=== PATIENT | female | born 1980 | race Two or more races ===

== ENCOUNTER 2017-06-10 21:18 | Observation (INO) | payer MEDICAID ==
[~2017-06-10 21:18] MED LIST: PREN-96 PO
== END 2017-06-10 22:40 | disposition home or self-care (01) | DRG 566 ==
LOC: LDRP 21:18
PROVIDERS: ADMIT Obstetrics & Gynecology; ATTEND Obstetrics & Gynecology
DX: O36.8130 Decreased fetal movements, third trimester, not applicable or unspecified (principal); O26.893 Other specified pregnancy related conditions, third trimester; M79.89 Other specified soft tissue disorders; O09.523 Supervision of elderly multigravida, third trimester; W18.30XA Fall on same level, unspecified, initial encounter; Y93.89 Activity, other specified; Y92.009 Unspecified place in unspecified non-institutional (private) residence as the place of occurrence of the external cause; Y99.8 Other external cause status; Z3A.28 28 weeks gestation of pregnancy
CPT/HCPCS: 59025; 76815; 81002; G0378

== ENCOUNTER 2017-07-14 19:46 | Observation (INO) | payer MEDICAID | END 2017-07-14 21:10 | disposition home or self-care (01) | DRG 566 | LOC: LDRP 19:46 | PROVIDERS: ADMIT Obstetrics & Gynecology; ATTEND Obstetrics & Gynecology | DX: O24.419 Gestational diabetes mellitus in pregnancy, unspecified control (principal); O26.893 Other specified pregnancy related conditions, third trimester; O09.523 Supervision of elderly multigravida, third trimester; R51 Headache; O62.9 Abnormality of forces of labor, unspecified; Z3A.33 33 weeks gestation of pregnancy | CPT/HCPCS: 59025; 81002; 82962; G0378 ==

== ENCOUNTER 2017-07-21 20:02 | Observation (INO) | payer MEDICAID ==
[2017-07-21] MEDS ORDERED: TERBUTALINE SULFATE 1 MG/ML 1ML VIAL SC ONE ×2 (21:00→21:11)
== END 2017-07-21 21:51 | disposition home or self-care (01) | DRG 566 ==
LOC: LDRP 20:02
PROVIDERS: ADMIT Obstetrics & Gynecology; ATTEND Obstetrics & Gynecology
DX: O24.419 Gestational diabetes mellitus in pregnancy, unspecified control (principal); O09.523 Supervision of elderly multigravida, third trimester; Z3A.34 34 weeks gestation of pregnancy
CPT/HCPCS: 59025; 81002; 82948; 82962; 96372; G0378; J3105

== ENCOUNTER 2017-07-28 19:57 | Observation (INO) | payer MEDICAID | END 2017-07-28 21:35 | disposition home or self-care (01) | DRG 566 | LOC: LDRP 19:57 | PROVIDERS: ADMIT Obstetrics & Gynecology; ATTEND Obstetrics & Gynecology | DX: O24.419 Gestational diabetes mellitus in pregnancy, unspecified control (principal); O09.523 Supervision of elderly multigravida, third trimester; Z3A.35 35 weeks gestation of pregnancy | CPT/HCPCS: 59025; 81002; 82962; G0378 ==

== ENCOUNTER 2017-07-29 10:10 | Observation (INO) | payer MEDICAID | END 2017-07-29 10:45 | disposition home or self-care (01) | DRG 566 | LOC: LDRP 10:10 | PROVIDERS: ADMIT Specialist; ATTEND Specialist | DX: O24.419 Gestational diabetes mellitus in pregnancy, unspecified control (principal); O12.03 Gestational edema, third trimester; O36.8130 Decreased fetal movements, third trimester, not applicable or unspecified; W19.XXXA Unspecified fall, initial encounter; Y93.89 Activity, other specified; Y92.89 Other specified places as the place of occurrence of the external cause; Y99.8 Other external cause status; Z3A.35 35 weeks gestation of pregnancy | CPT/HCPCS: 76818; G0378 ==

== ENCOUNTER 2017-07-31 21:20 | Observation (INO) | payer MEDICAID | END 2017-07-31 22:37 | disposition home or self-care (01) | DRG 566 | LOC: LDRP 21:20 → UNDODISOB 22:37 | PROVIDERS: ADMIT Specialist; ATTEND Specialist | DX: O24.419 Gestational diabetes mellitus in pregnancy, unspecified control (principal); Z3A.35 35 weeks gestation of pregnancy | CPT/HCPCS: 59025; 76818; 81002; 82948; 82962; G0378 ==

== ENCOUNTER 2017-08-04 20:15 | Observation (INO) | payer MEDICAID ==
[2017-08-04] MEDS ORDERED: FERR-7 PO (21:31)
== END 2017-08-04 22:11 | disposition home or self-care (01) | DRG 566 ==
LOC: LDRP 20:15
PROVIDERS: ADMIT Specialist; ATTEND Specialist
DX: O12.03 Gestational edema, third trimester (principal); O36.8130 Decreased fetal movements, third trimester, not applicable or unspecified; O09.523 Supervision of elderly multigravida, third trimester; W19.XXXA Unspecified fall, initial encounter; Y93.89 Activity, other specified; Y92.89 Other specified places as the place of occurrence of the external cause; Y99.8 Other external cause status; Z3A.36 36 weeks gestation of pregnancy
CPT/HCPCS: 59025; 76818; 81002; 82962; G0378

== ENCOUNTER 2017-08-07 21:01 | Observation (INO) | payer MEDICAID ==
[~2017-08-07 21:01] MED LIST changes: +FERR-7 PO
== END 2017-08-07 22:20 | disposition home or self-care (01) | DRG 563 ==
LOC: LDRP 21:01 → UNDODISOB 22:20
PROVIDERS: ADMIT Obstetrics & Gynecology; ATTEND Obstetrics & Gynecology
DX: O60.03 Preterm labor without delivery, third trimester (principal); O26.893 Other specified pregnancy related conditions, third trimester; N89.8 Other specified noninflammatory disorders of vagina; O09.523 Supervision of elderly multigravida, third trimester; Z3A.36 36 weeks gestation of pregnancy
CPT/HCPCS: 59025; 76818; 81002; 82962; G0378

== ENCOUNTER 2017-08-15 21:24 | Observation (INO) | payer MEDICAID ==
[~2017-08-15] VITALS: Ht 152.4 cm; Wt 74.4 kg
[2017-08-15] MEDS ORDERED: NIFEdipine 10 MG CAP PO ONE (23:00)
[2017-08-15] MEDS ORDERED: LACTATED RINGER'S 1,000 ML IV SCH (23:00)
[2017-08-15] MEDS ORDERED: LACTATED RINGER'S 1,000 ML IV ONE (23:00)
[2017-08-15] MEDS ORDERED: NIFEdipine 10 MG CAP ONE ×2 (23:03→23:27)
[2017-08-16 02:45] LABS: Urine Bacteria FEW /hpf (None Seen); Urine Blood Negative /uL (Negative); Urine Mucus FEW (None Seen); Urine Specific Gravity 1.005 (1.001-1.035); Urine WBC 1 /hpf (0 - 5)
[2017-08-16] MEDS ORDERED: LACTATED RINGER'S 1,000 ML IV ONE (03:30)
[2017-08-16] MEDS: NIFEdipine 10 MG CAP PO SCH ×2 (03:41→07:51)
[2017-08-16] MEDS ORDERED: ceFAZolin 1GM/50ML 50 ML IV ONE ×2 (04:51→05:00)
[2017-08-16 05:05] LABS: Basophils # (auto) 0 uL; Basophils % (auto) 0.5 % (0.0-2.0); Eosinophils # (auto) 0.1 uL; Eosinophils % (auto) 1.6 % (0.0-7.0); Hematocrit 34.4 % (36.0-46.0); Hemoglobin 11.8 g/dL (12.2-16.2); Lymphocytes # (auto) 1.6 uL; Lymphocytes % (auto) 26.7 % (10.0-50.0); Mean Corpuscular Hemoglobin 30.7 pg (28.0-32.0); Mean Corpuscular Hgb Conc. 34.3 g/dL (32.0-36.0); Mean Corpuscular Volume 89.4 fL (80.0-100.0); Monocytes # (auto) 0.3 uL; Monocytes % (auto) 5.7 % (0.0-12.0); Neutrophils % (auto) 65.5 % (37.0-80.0); Platelet Count (auto) 147 10^3/uL (140-450); Red Blood Cells 3.85 10^6/uL (4.0-5.20); Red Cell Distribution Width 16.5 % (11.8-14.3); White Blood Cell 6.1 10^3/uL (4.4-10.8)
[2017-08-16 05:49] LABS: Albumin 2.6 g/dL (3.4-5.0); BUN/Creatinine Ratio 22.9; Bilirubin, Total 0.6 mg/dL (0.2-1.0); Calcium 8.4 mg/dL (8.5-10.1); Potassium 3.3 mmol/L (3.5-5.1); Total Protein 6.7 g/dL (6.4-8.2)
[2017-08-16 07:23] LABS: INR 0.93 (0.9-1.15); Partial Thromboplastin Time 26.4 sec (23.78-33.04)
[2017-08-18 11:04] LABS: RPR Non Reactive (Non Reactive)
== END 2017-08-16 09:50 | disposition home or self-care (01) | DRG 566 ==
LOC: INTOOBSV 21:24 → LDRP 21:24
PROVIDERS: ADMIT Obstetrics & Gynecology; ATTEND Obstetrics & Gynecology
DX: O24.419 Gestational diabetes mellitus in pregnancy, unspecified control (principal); E86.0 Dehydration; O26.893 Other specified pregnancy related conditions, third trimester; Z3A.37 37 weeks gestation of pregnancy
CPT/HCPCS: 36415; 59025; 76818; 80053; 81001; 81002; 82948; 82962; 85025; 85610; 85730; 86592; 86850; 86900; 86901; 96361; 96365; G0378; J0690; 96366

== ENCOUNTER 2017-08-20 15:13 | Observation (INO) | payer MEDICAID ==
[2017-08-20] MEDS ORDERED: NIF10C PO (16:10)
== END 2017-08-20 16:05 | disposition home or self-care (01) | DRG 566 ==
LOC: LDRP 15:13
PROVIDERS: ADMIT Specialist; ATTEND Specialist
DX: O24.419 Gestational diabetes mellitus in pregnancy, unspecified control (principal); Z3A.38 38 weeks gestation of pregnancy
CPT/HCPCS: 59025; 76818; 81002; G0378

== ENCOUNTER 2017-08-24 20:15 | Observation (INO) | payer MEDICAID ==
[~2017-08-24] VITALS: Ht 157.5 cm; Wt 74.8 kg
[~2017-08-24 20:15] MED LIST changes: +NIF10C PO
== END 2017-08-24 22:25 | disposition home or self-care (01) | DRG 566 ==
LOC: LDRP 20:15
PROVIDERS: ADMIT Specialist; ATTEND Specialist
DX: O24.419 Gestational diabetes mellitus in pregnancy, unspecified control (principal); Z3A.38 38 weeks gestation of pregnancy
CPT/HCPCS: 59025; 76818; 81002; 82948; 82962; G0378

== ENCOUNTER 2017-08-26 20:39 | Observation (INO) | payer MEDICAID ==
[~2017-08-26] VITALS: Ht 152.4 cm; Wt 68.0 kg
[2017-08-26] MEDS ORDERED: NIFEdipine 10 MG CAP PO ONE (21:30)
[2017-08-26] MEDS ORDERED: NIFEdipine 10 MG CAP ONE (21:38)
== END 2017-08-26 22:12 | disposition home or self-care (01) | DRG 566 ==
LOC: LDRP 20:39
PROVIDERS: ADMIT Specialist; ATTEND Specialist
DX: O24.419 Gestational diabetes mellitus in pregnancy, unspecified control (principal); O09.523 Supervision of elderly multigravida, third trimester; Z3A.00 Weeks of gestation of pregnancy not specified
CPT/HCPCS: 59025; 76818; 81002; 82948; G0378

== ENCOUNTER 2017-08-27 03:23 | Inpatient (IN) | payer MEDICAID ==
[~2017-08-27] VITALS: Ht 152.4 cm; Wt 68.0 kg
[2017-08-27 03:52] LABS: Urine WBC None Seen /hpf (0 - 5)
[2017-08-27] MEDS ORDERED: LACTATED RINGER'S 1,000 ML IV ONE (04:03)
[2017-08-27 04:09] LABS: Urine Bacteria FEW /hpf (None Seen); Urine Blood Negative /uL (Negative); Urine Specific Gravity 1.002 (1.001-1.035)
[2017-08-27] MEDS ORDERED: LACTATED RINGER'S 1,000 ML IV SCH (04:15)
[2017-08-27 05:24] LABS: Basophils # (auto) 0.1 uL; Basophils % (auto) 0.8 % (0.0-2.0); Eosinophils # (auto) 0.1 uL; Eosinophils % (auto) 1.9 % (0.0-7.0); Hematocrit 37.1 % (36.0-46.0); Hemoglobin 12.9 g/dL (12.2-16.2); Lymphocytes # (auto) 1.6 uL; Lymphocytes % (auto) 24.3 % (10.0-50.0); Mean Corpuscular Hemoglobin 31.1 pg (28.0-32.0); Mean Corpuscular Hgb Conc. 34.9 g/dL (32.0-36.0); Mean Corpuscular Volume 89.1 fL (80.0-100.0); Monocytes # (auto) 0.4 uL; Monocytes % (auto) 6.1 % (0.0-12.0); Neutrophils # (auto) 4.5 uL; Neutrophils % (auto) 66.9 % (37.0-80.0); Nucleated Red Blood Cells % 0.1 %; Platelet Count (auto) 172 10^3/uL (140-450); Red Blood Cells 4.16 10^6/uL (4.0-5.20); Red Cell Distribution Width 16.3 % (11.8-14.3); White Blood Cell 6.7 10^3/uL (4.4-10.8)
[2017-08-27 05:48] LABS: INR 0.9 (0.9-1.15); Partial Thromboplastin Time 26.1 sec (23.78-33.04); Prothrombin Time 9.7 sec (9.27-12.13)
[2017-08-27 05:54] LABS: Albumin 2.6 g/dL (3.4-5.0); BUN/Creatinine Ratio 18.4; Calcium 8.3 mg/dL (8.5-10.1); Potassium 4.2 mmol/L (3.5-5.1)
[2017-08-27 05:57] LABS: Bilirubin, Total 0.4 mg/dL (0.2-1.0)
[2017-08-27] MEDS ORDERED: SUCCINYLCHOLINE CHLORIDE 20 MG/ML 10ML VIAL IV ONE (07:19)
[2017-08-27] MEDS ORDERED: TETRACAINE 1% INJ 2 ML VIAL IJ ONE (07:19)
[2017-08-27] MEDS ORDERED: LACT. RINGERS/OXYTOCIN 20UNITS 1,000 ML IV ONE (07:24)
[2017-08-27] MEDS ORDERED: WITCH HAZEL-GLYCERIN PAD TOP ONE (07:27)
[2017-08-27] MEDS ORDERED: DERMOPLAST 60ML BOTTLE TOP ONE (07:27)
[2017-08-27] MEDS ORDERED: LIDOCAINE 2% (LOCAL ANESTH.) PF 5ml SDV ONE (07:27)
[2017-08-27] MEDS ORDERED: PHISODERM TOP SOLN 240ML BTL TOP ONE (07:27)
[2017-08-27] MEDS ORDERED: LIDOCAINE 1% (LOCAL ANESTH.) PF 5ml SDV IJ ONE (07:30)
[2017-08-27] MEDS: DOCUSATE CALCIUM 240 MG CAP PO SCH (08:50)
[2017-08-27] MEDS: IBUPROFEN 600 MG TAB PO PRN ×3 (08:50→19:52)
[2017-08-27] MEDS ORDERED: LACT. RINGERS/OXYTOCIN 20UNITS 1,000 ML IV SCH (10:14)
[2017-08-27] MEDS ORDERED: WITCH HAZEL-GLYCERIN PAD TOP PRN (10:15)
[2017-08-27] MEDS ORDERED: DERMOPLAST 60ML BOTTLE TOP PRN (10:15)
[2017-08-27] MEDS ORDERED: PHISODERM TOP SOLN 240ML BTL TOP PRN (10:15)
[2017-08-27 11:00] VITALS: BP 116/71
[2017-08-27 15:30] VITALS: BP 117/77
[2017-08-27 18:36] VITALS: BP 120/64
[2017-08-27 22:46] VITALS: BP 114/73
[2017-08-28] MEDS: IBUPROFEN 600 MG TAB PO PRN (02:47)
[2017-08-28 03:00] VITALS: BP 113/70
[2017-08-28 05:06] LABS: RPR Non Reactive (Non Reactive)
[2017-08-28 07:28] VITALS: BP 128/73
[2017-08-28] MEDS ORDERED: TETANUS-DIPTH-ACEL PERTUSSIS 0.5ML SYRG IM ONE (09:00)
[2017-08-28] MEDS: DOCUSATE CALCIUM 240 MG CAP PO SCH (09:59)
[2017-08-28 11:13] VITALS: BP 134/77
== END 2017-08-28 12:40 | disposition home or self-care (01) | DRG 560 ==
LOC: LDRP 03:23 → OBSVTOIN 03:23 → LDRP 03:23
PROVIDERS: ADMIT Specialist; ATTEND Specialist
PROC: 0KQM0ZZ Repair Perineum Muscle, Open Approach (ICD-10-PCS; principal; 2017-08-27)
PROC: 10D07Z6 Extraction of Products of Conception, Vacuum, Via Natural or Artificial Opening (ICD-10-PCS; 2017-08-27)
PROC: 10907ZC Drainage of Amniotic Fluid, Therapeutic from Products of Conception, Via Natural or Artificial Opening (ICD-10-PCS; 2017-08-27)
DX: O24.429 Gestational diabetes mellitus in childbirth, unspecified control (principal); O77.0 Labor and delivery complicated by meconium in amniotic fluid; O70.1 Second degree perineal laceration during delivery; O34.211 Maternal care for low transverse scar from previous cesarean delivery; Z37.0 Single live birth; Z3A.39 39 weeks gestation of pregnancy; Z82.49 Family history of ischemic heart disease and other diseases of the circulatory system
CPT/HCPCS: 36415; 51702; 59025; 59612; 80053; 81001; 81002; 82948; 82962; 85025; 85610; 85730; 86592; 86850; 86900; 86901; 90472; 90715; 96365; 96366; J0330; J2590